=== PATIENT | female | born 1940 | race Caucasian/White ===

== ENCOUNTER → 2017-03-20 | Outpatient (CLI) | payer MEDICARE ==
[~2017-03-20] MED LIST: ACY30T TP; AZIT-1 PO; CEPH500C24 PO; CODE118S5 PO; FURO-45 PO; HYDR-385 PO; HYDR200T42 PO; LETPT PO; LIS20 PO; LISI-362 PO; LISI20TA29 PO; LOR7.5/325 PO; MELO-207 PO; NITR-1 PO; OMEG500C5 PO; OMEP-125 PO; OMEP-153 PO; ONDA8TAB98 PO; OXY10 PO; PNEU0.5D3 IM; POTA-28 PO; PRED-1 PO; PRED20TA6 PO; PROL80 PO; PROP40TA45 PO
[2017-03-20 13:48] LABS: PLATELET COUNT, AUTOMATED 376 K/uL (150-450)
--- NOTE | 2017-03-20 14:59 | RADIOLOGY IMAGING REPORT ---
FACILITY: [facility] PATIENT NAME: Latoya Auguste : 1940 MR: [id number] V: [id number] EXAM DATE: ORDERING PHYSICIAN: TASNEEM LOWRY TECHNOLOGIST: Location: [facility] Patient: Latoya Auguste : 1940 Visit/Account:[id number] Date of Sevice: 03/20/2017 Exam type: CHEST PA AND LAT History: Cough Comparison: October 21, 2008. Findings: The lungs are free of acute effusions, infiltrates or edema. Cardiac silhouette is normal in size. The trachea is in midline. There are mild spondylotic changes of the thoracic spine. Surgical clips are present in the right upper quadrant of abdomen IMPRESSION: 1. No acute cardiac pulmonary process is seen Report Dictated By: Ella Hebert MD at 03/20/2017 2:53 PM Report E-Signed By: Ella Hebert MD at 03/20/2017 2:54 PM WSN:[id number]
--- NOTE | 2017-03-20 15:50 | EKG ---
FACILITY: [facility] PATIENT NAME: RAJEEV CHU : [id number] MR: [id number] V: [id number] EXAM DATE: ORDERING PHYSICIAN: TASNEEM LOWRY TECHNOLOGIST: ISSA NARANJO Test Reason : IRREGULAR HR Blood Pressure : / mmHG Vent. Rate : 072 BPM Atrial Rate : 072 BPM P-R Int : 188 ms QRS Dur : 084 ms QT Int : 418 ms P-R-T Axes : 062 -31 037 degrees QTc Int : 457 ms Sinus rhythm with marked sinus arrhythmia Left axis deviation Septal infarct , age undetermined Abnormal ECG No previous ECGs available Confirmed by TASNEEM LOWRY ([id number]) on 03/20/2017 5:03:01 PM Referred By: Confirmed By:TASNEEM LOWRY
== END ==
LOC: LAB 13:05
PROVIDERS: ATTEND Emergency Medicine
DX: E11.9 Type 2 diabetes mellitus without complications (principal); M47.9 Spondylosis, unspecified; R94.31 Abnormal electrocardiogram [ECG] [EKG]
CPT/HCPCS: 36415; 71046; 82040; 82247; 82310; 82374; 82435; 82565; 82947; 83036; 83935; 84075; 84132; 84155; 84295; 84300; 84443; 84450; 84460; 84520; 85025

== ENCOUNTER → 2017-03-27 | Outpatient (CLI) | payer MEDICARE ==
[~2017-03-27] MED LIST changes: +GABA-549 PO
== END ==
LOC: LAB 15:56
PROVIDERS: ATTEND Emergency Medicine
DX: E87.1 Hypo-osmolality and hyponatremia (principal); G62.9 Polyneuropathy, unspecified
CPT/HCPCS: 36415; 82310; 82374; 82435; 82565; 82607; 82947; 84132; 84295; 84520

== ENCOUNTER → 2017-03-28 | Outpatient (CLI) | payer MEDICARE ==
[2017-03-28 15:24] LABS: PLATELET COUNT, AUTOMATED 449 K/uL (150-450)
== END ==
LOC: LAB 14:54
PROVIDERS: ATTEND Emergency Medicine
DX: D64.9 Anemia, unspecified (principal); E87.1 Hypo-osmolality and hyponatremia
CPT/HCPCS: 36415; 82310; 82374; 82435; 82565; 82947; 84132; 84295; 84520; 85025

== ENCOUNTER → 2017-04-12 | Outpatient (CLI) | payer MEDICARE | LOC: LAB 14:40 | PROVIDERS: ATTEND Emergency Medicine | DX: N18.3 Chronic kidney disease, stage 3 (moderate) (principal) | CPT/HCPCS: 36415; 82310; 82374; 82435; 82565; 82947; 84132; 84295; 84520 ==

== ENCOUNTER → 2017-04-20 | Outpatient (CLI) | payer MEDICARE | LOC: LAB 14:53 | PROVIDERS: ATTEND Emergency Medicine | DX: Z12.11 Encounter for screening for malignant neoplasm of colon (principal) | CPT/HCPCS: 82274 ==

== ENCOUNTER → 2017-04-23 | Outpatient (CLI) | payer MEDICARE ==
[~2017-04-23] MED LIST changes: +SULF-198 PO
--- NOTE | 2017-04-24 10:30 | RADIOLOGY IMAGING REPORT ---
FACILITY: [facility] PATIENT NAME: RAJEEV CHU : [id number] MR: [id number] V: [id number] EXAM DATE: ORDERING PHYSICIAN: TASNEEM LOWRY TECHNOLOGIST: Ely [place] PROCEDURE:BILATERAL DIGITAL SCREENING MAMMOGRAM WITH CAD ASSISTED INTERPRETATION AND 3D BREAST TOMOSYNTHESIS. COMPARISON:Prior mammograms dated 04/17/16/, 04/14/15, 04/13/14, 02/18/13, 02/05/12 and 01/23/11. INDICATIONS:SCREENING FINDINGS: A small amount of fibroglandular tissue is seen throughout the breasts. The parenchymal pattern has remained stable when allowing for difference in mammographic technique and patient positioning. There is no evidence of malignant appearing mass, malignant appearing calcification or other secondary sign of malignancy in either breast. The area of postsurgical scarring and architectural distortion in the upper outer quadrant of the left breast has remained stable. DIAGNOSTIC CATEGORY 2--BENIGN FINDING. RECOMMENDATIONS: ROUTINE MAMMOGRAM AND CLINICAL EVALUATION. IMPRESSION: Bi-RADS 2: No significant abnormality is seen. Images were reviewed with R2CAD and 3D breast tomosynthesis. Dictated by: Ella Hebert M.D. on 04/23/2017 at 17:06 Transcribed by: MINI on 04/23/2017 at 22:31 Approved by: Ella Hebert M.D. on 04/24/2017 at 10:29 [facility]
== END ==
LOC: MAMO 01:38
PROVIDERS: ATTEND Emergency Medicine
DX: Z12.31 Encounter for screening mammogram for malignant neoplasm of breast (principal)
CPT/HCPCS: 77063; 77067

== ENCOUNTER 2017-05-08 02:01 | Inpatient (IN) | payer MEDICARE ==
[~2017-05-08] VITALS: Ht 165.1 cm; Wt 70.3 kg
--- NOTE | 2017-05-08 02:04 | ER Report ---
History and Physical Time Seen By MD: 02:03 HPI/ROS CHIEF COMPLAINT: Confused, not feeling well HISTORY OF PRESENT ILLNESS: 77-year-old female presents ambulatory to the ER for evaluation. EMS was called to her house that she was feeling out of sorts and having trouble thinking. EMS reports her stroke scale was unremarkable. Her vital signs were stable. Patient declined transport by EMS and came on her own and private auto. Patient's recent history significant for shingles diagnosed in late 04/12/17. She was too late to be started on antiviral medication. On subsequent visits. She was thought to have secondary bacterial infection, was placed on sulfamethoxazole. She's also been taking hydrocodone twice daily for pain relief. Patient appears to recently been started on omeprazole 20 mg by mouth twice a day. Patient states she tonight noticed that she is having trouble operating the remote for her television. She states she just doesn't feel right. She is unable quantitated it specifically. REVIEW OF SYSTEMS: Respiratory: No cough, no dyspnea. Cardiovascular: No chest pain, no palpitations. Gastrointestinal: No vomiting, no abdominal pain. Musculoskeletal: No back pain. Allergies: Coded Allergies: Penicillins (Verified Allergy, Mild, 02/19/08) Home Meds Active Scripts Hydrocodone Bit/Acetaminophen (HYDROCODON-ACETAMINOPHEN 5-325) 1 Each Tablet, 1 EACH PO BID, #60 TAB Prov:TASNEEM OLMSTEAD MD 05/03/17 Propranolol Hcl (PROPRANOLOL HCL) 40 Mg Tablet, 1 TAB PO BID, #180 TAB Prov:TASNEEM OLMSTEAD MD 04/24/17 Omeprazole (OMEPRAZOLE) 20 Mg Capsule., 1 CAP PO DAILY, #90 CAP TAKE ONE CAPSULE BY MOUTH TWICE A DAY Prov:TASNEEM OLMSTEAD MD 04/24/17 Lisinopril (LISINOPRIL) 10 Mg Tablet, 10 MG PO QDAY, #90 TAB 3 Refills Prov:TASNEEM OLMSTEAD MD 04/24/17 Reported Medications [place]-3 Fatty Acids (FISH OIL) 500 Mg Capsule.dr, 1000 MG PO 04/15/14 Discontinued Scripts Sulfamethoxazole/Trimet 800-160 Mg Tab (BACTRIM DS TABLET) 1 Each Tablet, 1 TAB PO Q12H for 10 Days, #20 TAB Prov:TASNEEM OLMSTEAD MD 04/24/17 Past Medical/Surgical History Past Medical History Neurologic: Reports hx of: sciatica (in right thigh. Had MRI years ago. 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 ) Cardiovascular: Reports hx of: cardiac arrhythmias (hx palpitations and on propranolol for years. ) hypertension (Tx for years. ) Gastrointestinal: Reports hx of: GERD (Not had EGD but on omeprazole for years. TUMS before that. ) Genitourinary: Reports hx of: overactive bladder (urgency and some incontinence. declines med for now.) Musculoskeletal: Reports hx of: osteoarthritis (in both shoulders and knees. takes ibuprofen. had steroid to L shoulder.) Psychiatric: Reports hx of: depression (on antidepressants which she "did not tolerate". Has insomnia. ) Endocrine: Reports hx of: other endocrine history (elevated glucose with A1c of 6.3 in 2012. 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 left breast lumpectomy followed by RT. see Dr. Emile Summers. ) Infectious disease: Reports hx of: other infectious disease (Shingles 04/05) Events: REPORTS HX OF: Other events (abstracted 03/01. Annual in mid 03/01. ) Past Surgical History Gastrointestinal: Reports hx of: cholecystectomy (1994) Gynecologic: Reports hx of: hysterectomy (2000. ovaries also removed. ) Breast: Reports hx of: lumpectomy (2005 in left breast per Dr[address] Wright. 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 ) Reviewed Nurses Notes: Yes Old Medical Records Reviewed: Yes Smoking Status: Never Smoker Constitutional Vital Sign - Last 24 Hours 05/08/17 05/08/17 05/08/17 05/08/17 02:14 02:16 02:19 02:30 Temp 97.5 Pulse 71 70 Resp 22 18 B/P (MAP) 158/113 (128) 158/84 (108) 158/84 138/104 (115) Pulse Ox 100 O2 Delivery Room Air 05/08/17 05/08/17 05/08/17 05/08/17 02:31 02:46 03:00 03:05 Pulse 82 78 78 Resp 13 18 16 B/P (MAP) 126/80 (95) Pulse Ox 99 99 100 05/08/17 05/08/17 05/08/17 05/08/17 03:10 03:15 03:20 03:25 Pulse ? 05/08/17 05/08/17 05/08/17 05/08/17 03:30 03:35 03:40 03:45 Pulse 79 71 69 74 Resp 12 19 15 17 B/P (MAP) 137/95 (109) Pulse Ox 97 98 98 99 05/08/17 05/08/17 05/08/17 05/08/17 03:50 04:05 04:10 04:15 Pulse 75 76 70 72 Resp 13 17 19 16 Pulse Ox 99 100 99 99 05/08/17 05/08/17 05/08/17 05/08/17 04:20 04:25 04:30 04:35 Pulse 73 75 73 73 Resp 21 22 22 19 B/P (MAP) 129/79 (96) Pulse Ox 99 99 98 100 05/08/17 05/08/17 05/08/17 05/08/17 04:40 04:45 04:55 05:00 Pulse 76 86 73 109 Resp 19 Pulse Ox 100 98 87 05/08/17 05/08/17 05/08/17 05:05 05:10 05:15 Pulse 80 85 85 Pulse Ox 97 100 100 Physical Exam General Appearance: The patient is alert, has no immediate need for airway protection and no current signs of toxicity. Alert and oriented 3, no acute distress HEENT: Pupils equal and round no injection. TMs normal, oropharynx without redness or exudate, mucous membranes are moist Respiratory: Chest is non tender, lungs are clear to auscultation. Cardiac: regular rate and rhythm Gastrointestinal: Abdomen is soft and non tender, no masses, bowel sounds normal. Musculoskeletal: Neck: Neck is supple and non tender. Extremities have full range of motion and are non tender. Skin: No rashes or lesions. DIFFERENTIAL DIAGNOSIS: After history and physical exam differential diagnosis was considered for altered mental status including but not limited to hypoglycemia, infectious process, electrolyte abnormality, head injury and intoxicants. Medical Decision Making Data Points Result Diagram: 05/08/17 0219 05/08/17 1702 Laboratory Hematology Test 05/08/17 02:19 Red Blood Count 4.57 M/uL (4.17-5.56) Mean Corpuscular Volume 86.7 fL (80.0-96.0) Mean Corpuscular Hemoglobin 30.2 pg (26.0-33.0) Mean Corpuscular Hemoglobin Concent 34.9 g/dL (32.0-36.0) Red Cell Distribution Width 13.8 % (11.5-14.5) Mean Platelet Volume 7.1 fL (7.2-11.1) Neutrophils (%) (Auto) 55.7 % (39.4-72.5) Lymphocytes (%) (Auto) 26.7 % (17.6-49.6) Monocytes (%) (Auto) 12.0 % (4.1-12.4) Eosinophils (%) (Auto) 4.5 % (0.4-6.7) Basophils (%) (Auto) 1.1 % (0.3-1.4) Nucleated RBC Relative Count (auto) 0.0 /100WBC Neutrophils # (Auto) 3.7 K/uL (2.0-7.4) Lymphocytes # (Auto) 1.8 K/uL (1.3-3.6) Monocytes # (Auto) 0.8 K/uL (0.3-1.0) Eosinophils # (Auto) 0.3 K/uL (0.0-0.5) Basophils # (Auto) 0.1 K/uL (0.0-0.1) Nucleated RBC Absolute Count (auto) 0.00 K/uL Urine Color Yellow Urine Clarity Slightly-cloudy Urine pH 5.0 pH (4.8-9.5) Urine Specific [place] 1.020 Urine Protein Negative mg/dL (NEGATIVE) Urine Glucose (UA) Negative mg/dL (NEGATIVE) Urine Ketones Trace mg/dL (NEGATIVE) Urine Blood Negative (NEGATIVE) Urine Nitrite Negative (NEGATIVE) Urine Bilirubin Negative (NEGATIVE) Urine Urobilinogen Negative mg/dL (0.2-1.9) Urine Leukocyte Esterase Small (NEGATIVE) Urine RBC None /HPF (0-2/HPF) Urine WBC 4 /HPF (0-5/HPF) Urine Squamous Epithelial Cells Many /LPF (</=FEW) Urine Transitional Epithelial Cells Moderate /LPF (NONE-FEW) Urine Bacteria Negative /HPF (NONE-FEW) Urine Hyaline Casts Moderate /LPF (NONE-FEW) Urine Mucus None /HPF (NONE-FEW) Total Bilirubin 0.5 mg/dl (0.2-1.3) Aspartate Amino Transf (AST/SGOT) 23 U/L (0-35) Alanine Aminotransferase (ALT/SGPT) 32 U/L (0-56) Alkaline Phosphatase 90 U/L (0-126) Troponin I < 0.012 ng/ml Total Protein 7.7 gm/dl (6.3-8.2) Albumin 4.2 g/dl (3.5-5.0) Thyroid Stimulating Hormone (TSH) 3.22 uIU/ml (0.46-4.68) Serum Alcohol < 10 mg/dl Chemistry Test 05/08/17 02:19 White Blood Count 6.7 k/uL (4.5-11.0) Red Blood Count 4.57 M/uL (4.17-5.56) Hemoglobin 13.8 g/dL (12.0-16.0) Hematocrit 39.6 % (34.0-47.0) Mean Corpuscular Volume 86.7 fL (80.0-96.0) Mean Corpuscular Hemoglobin 30.2 pg (26.0-33.0) Mean Corpuscular Hemoglobin Concent 34.9 g/dL (32.0-36.0) Red Cell Distribution Width 13.8 % (11.5-14.5) Platelet Count 396 K/uL (150-450) Mean Platelet Volume 7.1 fL (7.2-11.1) Neutrophils (%) (Auto) 55.7 % (39.4-72.5) Lymphocytes (%) (Auto) 26.7 % (17.6-49.6) Monocytes (%) (Auto) 12.0 % (4.1-12.4) Eosinophils (%) (Auto) 4.5 % (0.4-6.7) Basophils (%) (Auto) 1.1 % (0.3-1.4) Nucleated RBC Relative Count (auto) 0.0 /100WBC Neutrophils # (Auto) 3.7 K/uL (2.0-7.4) Lymphocytes # (Auto) 1.8 K/uL (1.3-3.6) Monocytes # (Auto) 0.8 K/uL (0.3-1.0) Eosinophils # (Auto) 0.3 K/uL (0.0-0.5) Basophils # (Auto) 0.1 K/uL (0.0-0.1) Nucleated RBC Absolute Count (auto) 0.00 K/uL Urine Color Yellow Urine Clarity Slightly-cloudy Urine pH 5.0 pH (4.8-9.5) Urine Specific [place] 1.020 Urine Protein Negative mg/dL (NEGATIVE) Urine Glucose (UA) Negative mg/dL (NEGATIVE) Urine Ketones Trace mg/dL (NEGATIVE) Urine Blood Negative (NEGATIVE) Urine Nitrite Negative (NEGATIVE) Urine Bilirubin Negative (NEGATIVE) Urine Urobilinogen Negative mg/dL (0.2-1.9) Urine Leukocyte Esterase Small (NEGATIVE) Urine RBC None /HPF (0-2/HPF) Urine WBC 4 /HPF (0-5/HPF) Urine Squamous Epithelial Cells Many /LPF (</=FEW) Urine Transitional Epithelial Cells Moderate /LPF (NONE-FEW) Urine Bacteria Negative /HPF (NONE-FEW) Urine Hyaline Casts Moderate /LPF (NONE-FEW) Urine Mucus None /HPF (NONE-FEW) Total Bilirubin 0.5 mg/dl (0.2-1.3) Aspartate Amino Transf (AST/SGOT) 23 U/L (0-35) Alanine Aminotransferase (ALT/SGPT) 32 U/L (0-56) Alkaline Phosphatase 90 U/L (0-126) Troponin I < 0.012 ng/ml Total Protein 7.7 gm/dl (6.3-8.2) Albumin 4.2 g/dl (3.5-5.0) Thyroid Stimulating Hormone (TSH) 3.22 uIU/ml (0.46-4.68) Serum Alcohol < 10 mg/dl Toxicology Test 05/08/17 02:19 Serum Alcohol < 10 mg/dl Urinalysis Test 05/08/17 02:19 Urine Color Yellow Urine Clarity Slightly-cloudy Urine pH 5.0 pH (4.8-9.5) Urine Specific [place] 1.020 Urine Protein Negative mg/dL (NEGATIVE) Urine Glucose (UA) Negative mg/dL (NEGATIVE) Urine Ketones Trace mg/dL (NEGATIVE) Urine Blood Negative (NEGATIVE) Urine Nitrite Negative (NEGATIVE) Urine Bilirubin Negative (NEGATIVE) Urine Urobilinogen Negative mg/dL (0.2-1.9) Urine Leukocyte Esterase Small (NEGATIVE) Urine RBC None /HPF (0-2/HPF) Urine WBC 4 /HPF (0-5/HPF) Urine Squamous Epithelial Cells Many /LPF (</=FEW) Urine Transitional Epithelial Cells Moderate /LPF (NONE-FEW) Urine Bacteria Negative /HPF (NONE-FEW) Urine Hyaline Casts Moderate /LPF (NONE-FEW) Urine Mucus None /HPF (NONE-FEW) EKG/Imaging EKG Interpretation 12 lead EK 243 Rhythm: normal sinus rhythm [place]: Left axis deviation QRS: Old inferior Q waves, old anterior Q waves ST segments: normal, comparison to previous EKG dated, no significant change in comparison to previous EKG dated 03/20/17 Imaging X-ray: Single view chest x-ray was obtained. I viewed the images myself on the PACS system. My interpretation of the images is: No infiltrate, no usually in, normal mediastinum., Comparison to previous chest x-ray dated 03/20/17, no significant change. The radiologist interpretation had no clinically significant variation from this interpretation. Results: CT scan of the head was obtained. The results of the study are no acute findings. The study was read by the radiologist. I viewed the images myself on the PACS system. ED Course/Re-evaluation Clinical Indication for ER IV: Hydration, IV Access ED Course Patient was admitted to an examination room. H&P was done. The differential diagnoses was considered. On clinical examination. Patient has a nonfocal neurologic examination. Diagnostic evaluation is undertaken. Diagnostic laboratory studies show sodium of 1:15. Review of old records shows a previous sodium of 122 and diagnosis of SIADH by Dr. Olmstead. Patient was treated with normal saline at 125 mL per hour. Patient diagnostic CT was unremarkable except for some pansinusitis. 05/08/2017 4:28:10 am case discussed with Jonah Barnes hospitalist on-call, who accepts the patient for admission for treatment of her low sodium and SIADH Decision to Disposition Date: May 08, 2017 Decision to Disposition Time: 02:47 Depart Departure Latest Vital Signs Vital Signs Date Time Temp Pulse Resp B/P (MAP) Pulse Ox O2 Delivery O2 Flow Rate FiO2 05/08/17 05:15 85 100 05/08/17 04:45 19 05/08/17 04:30 129/79 (96) 05/08/17 02:19 97.5 Room Air Impression: Primary Impression: Hyponatremia Additional Impressions: Altered mental status, unspecified Hypertension GERD (gastroesophageal reflux disease) Shingles outbreak History of SIADH Condition: Improved Disposition: Admitted from ER Referrals: TASNEEM OLMSTEAD MD (PCP) Problem Qualifiers Additional Impressions: Altered mental status, unspecified Altered mental status type: unspecified Qualified Codes: R41.82 - Altered mental status, unspecified Hypertension Hypertension type: essential hypertension Qualified Codes: I10 - Essential ( primary) hypertension GERD (gastroesophageal reflux disease) Esophagitis presence: esophagitis presence not specified Qualified Codes: K21.9 - Gastro-esophageal reflux disease without esophagitis Shingles outbreak Herpes zoster complications: with nervous system involvement Herpes zoster neurologic complication detail: postherpetic polyneuropathy Qualified Codes: B02.23 - Postherpetic polyneuropathy BHAVANA SALAZAR DO May 08, 2017 02:04
[2017-05-08 02:28] LABS: PLATELET COUNT, AUTOMATED 396 K/uL (150-450)
--- NOTE | 2017-05-08 02:47 | EKG ---
FACILITY: [facility] PATIENT NAME: RAJEEV CHU : [id number] MR: [id number] V: [id number] EXAM DATE: ORDERING PHYSICIAN: BHAVANA SALAZAR TECHNOLOGIST: AWA Test Reason : CONFUSION Blood Pressure : / mmHG Vent. Rate : 078 BPM Atrial Rate : 078 BPM P-R Int : 196 ms QRS Dur : 074 ms QT Int : 384 ms P-R-T Axes : 078 -49 035 degrees QTc Int : 437 ms Sinus rhythm Left axis deviation Inferior infarct , age undetermined Anteroseptal infarct (cited on or before 20-MAR-2017) Abnormal ECG Artifact in multiple leads - repeat if needed Confirmed by ADDIE THOMPSON ([id number]) on 05/08/2017 4:25:17 AM Referred By: Confirmed By:ADDIE THOMPSON
[2017-05-08] MEDS ORDERED: NS(*) 0.9% 1000 ML BAG 1,000 ML IV ONE (02:50)
--- NOTE | 2017-05-08 02:52 | RADIOLOGY IMAGING REPORT ---
FACILITY: [facility] PATIENT NAME: Latoya Auguste : 1940 MR: [id number] V: [id number] EXAM DATE: ORDERING PHYSICIAN: BHAVANA SALAZAR TECHNOLOGIST: Location: [facility] - [place], [place] Patient: Latoya Auguste : 1940 Visit/Account:[id number] Date of Sevice: 05/08/2017 PORTABLE CHEST: Indication: Altered mental status. Technique: A single frontal film was obtained. Comparison: 03/20/2017 Skeletal and soft tissue structures: There are chronic degenerative changes in shoulders. No acute sk eletal deformity is identified. Heart and mediastinum: Within normal limits. Lung wiseman: Well-expanded and clear. Pleural spaces: Unremarkable. Impression: No acute process or significant change. Report Dictated By: Maciej Woods MD at 05/08/2017 2:45 AM Report E-Signed By: Maciej Woods MD at 05/08/2017 2:47 AM WSN:[id number]
--- NOTE | 2017-05-08 03:38 | RADIOLOGY IMAGING REPORT ---
FACILITY: [facility] [place] PATIENT NAME: Latoya Auguste : 1940 MR: [id number] V: [id number] EXAM DATE: ORDERING PHYSICIAN: BHAVANA SALAZAR TECHNOLOGIST: Location: [facility] Patient: Latoya Auguste : 1940 Visit/Account:[id number] Date of Sevice: 05/08/[address]: Indication: Altered mental status. Technique: Contiguous axial sections were obtained from the base to the vertex without contrast enhan cement. One of the following dose optimization techniques was utilized in the performance of this exam: Autom ated exposure control; adjustment of the mA and/or kV according to the patient's size; or use of an i terative reconstruction technique. Specific details can be referenced in the facility's radiology CT exam operational policy. Comparison: None. Findings: There is no evidence of intra-axial or extra-axial hemorrhage. No focal areas of decreased or increased attenuation are identified. There is no evidence of mass, edema, or shift of the midline structures. The size, shape, and configuration of the ventricular system are normal. The skeletal st ructures are intact and unremarkable. There is diffuse opacification of the maxillary sinuses. Modera te mucosal thickening is present in the ethmoid and frontal sinuses. Impression: Unremarkable unenhanced head CT. Pansinusitis. Report Dictated By: Maciej Woods MD at 05/08/2017 3:30 AM Report E-Signed By: Maciej Woods MD at 05/08/2017 3:34 AM WSN:[id number]
[2017-05-08] MEDS ORDERED: IBUPROFEN 600 MG TAB PO ONE (04:25)
[2017-05-08 05:36] VITALS: BP 138/72
[2017-05-08] MEDS ORDERED: NS(*) 0.9% 1000 ML BAG 1,000 ML IV PRN (05:48)
[2017-05-08] MEDS ORDERED: INFLUENZA VIRUS VAC 0.5 ML SYR IM ONLY ONE (05:50)
[2017-05-08] MEDS ORDERED: ACETAMINOPHEN 325 MG TAB PO PRN (05:50)
--- NOTE | 2017-05-08 06:07 | History & Physical ---
History of Present Illness Chief Complaint "I don't feel right" History of Present Illness 77yo female with PMHx significant for HTN, breast cancer, recurrent hyponatremia. She reports increasing sensation of imbalance, generalized weakness, and "just not feeling right". She has difficult time describing her symptoms, but states she feels as if she "was missing something". She had trouble doing many of her usual activities around the house. She denies any DOCKERY, visual changes, focal weakness, CP, SOB, fever, N/V/D, or urinary symptoms. She has been dealing with a case of shingles in right ~L2 dermatome for the past month. She was evaluated in [facility] ER and found to have profound hyponatremia with sodium of 115. She was recommended for admission. History Problems: (1) Breast cancer Status: Chronic (2) S/P lumpectomy, left breast (3) History of hysterectomy (4) History of knee replacement (5) Arthritis Onset Date: 11/24/2014 Status: Chronic (6) Hypertension, benign Onset Date: 03/03/2014 Status: Chronic (7) Hyponatremia Status: Acute (8) Hypertension Status: Acute (9) GERD (gastroesophageal reflux disease) Status: Acute Home Meds Active Scripts Hydrocodone Bit/Acetaminophen (HYDROCODON-ACETAMINOPHEN 5-325) 1 Each Tablet, 1 EACH PO BID, #60 TAB Prov:TASNEEM LOWRY MD 05/03/17 Propranolol Hcl (PROPRANOLOL HCL) 40 Mg Tablet, 1 TAB PO BID, #180 TAB Prov:TASNEEM LOWRY MD 04/24/17 Omeprazole (OMEPRAZOLE) 20 Mg Capsule., 1 CAP PO DAILY, #90 CAP TAKE ONE CAPSULE BY MOUTH TWICE A DAY Prov:TASNEEM LOWRY MD 04/24/17 Lisinopril (LISINOPRIL) 10 Mg Tablet, 10 MG PO QDAY, #90 TAB 3 Refills Prov:TASNEEM LOWRY MD 04/24/17 Reported Medications [place]-3 Fatty Acids (FISH OIL) 500 Mg Capsule.dr, 1000 MG PO 04/15/14 Discontinued Scripts Sulfamethoxazole/Trimet 800-160 Mg Tab (BACTRIM DS TABLET) 1 Each Tablet, 1 TAB PO Q12H for 10 Days, #20 TAB Prov:TASNEEM LOWRY MD 04/24/17 Allergies: Coded Allergies: Penicillins (Verified Allergy, Mild, 12/3/08) Patient History: Renal failure FATHER Other Social/Family Hx She currently lives alone. Smoking Status: Never Smoker Hx Alcohol Use: No Social Drug Use: Never Review of Systems Constitutional: No Fever, No Chills Neurological: Confusion, Weakness, Dizziness Eyes: No Vision Change, No Loss of Vision ENT: Sinus Congestion, No Hearing Loss Cardiovascular: No Chest Pain, No Palpitations Respiratory: No Shortness of Breath, No Cough, No Wheezing Gastrointestinal: No Nausea, No Vomiting, No Diarrhea, No Hematemesis, No Hematochezia, No Melena, No Abdominal Pain Genitourinary: No Dysuria, No Hematuria Musculoskeletal: Pain (shingles) Exam Vital Signs Vital Signs Date Time Temp Pulse Resp B/P (MAP) Pulse Ox O2 Delivery O2 Flow Rate FiO2 05/08/17 05:36 97.7 77 16 138/72 (94) 96 Room Air General Appearance: Alert, Awake Neuro: No Gross deficits (motor exam grossly normal) Eyes: PERRLA ENT: Oropharynx Clear Neck: No Masses Cardiovascular: Regular Rate and Rhythm Respiratory: Clear to Auscultation Chest: No Tenderness GI: Abd Soft and Non-Tender : No CVA Tenderness Lymph: No Adenopathy Extremities: Warm, Perfused, Edema (trace both LE) Integumentary: Other (scabbed lesions of herpes zoster in right ~L2 dermatome/ some cracking of bunny skin is noted) Psych: Alert & Oriented X3 Medical Decision Making Data Points Result Diagram: 05/08/1721805/08/17218 Item Value Date Time Albumin 4.2 g/dl 05/08/17218 Total Protein 7.7 gm/dl 05/08/17 021 Troponin I < 0.012 ng/ml 05/08/17218 Alkaline Phosphatase 90 U/L 05/08/17218 Aspartate Amino Transf (AST/SGOT) 23 U/L 05/08/17 021 Alanine Aminotransferase (ALT/SGPT) 32 U/L 05/08/17 021 Calcium Level 9.6 mg/dl 05/08/17218 Total Bilirubin 0.5 mg/dl 05/08/17 021 Urine Mucus None /HPF 05/08/17218 Urine Hyaline Casts Moderate /LPF H 2/20/18 0219 Urine Bacteria Negative /HPF 05/08/17 0219 Urine Transitional Epithelial Cells Moderate /LPF H 05/08/17 0219 Urine Squamous Epithelial Cells Many /LPF H 05/08/17 0219 Urine WBC 4 /HPF 05/08/179 Urine RBC None /HPF 05/08/17 0219 Urine Leukocyte Esterase Small H 05/08/17218 Urine Urobilinogen Negative mg/dL 05/08/17218 Urine Bilirubin Negative 05/08/17 0219 Urine Nitrite Negative 05/08/17 021 Urine Blood Negative 05/08/179 Urine Ketones Trace mg/dL 05/08/17218 Urine Glucose (UA) Negative mg/dL 05/08/17218 Urine Protein Negative mg/dL 05/08/17218 Urine Specific [place] 1.020 05/08/17218 Urine pH 5.0 pH 05/08/17218 Urine Clarity Slightly-cloudy 05/08/17218 Urine Color Yellow 05/08/17218 Serum Alcohol < 10 mg/dl 05/08/17218 EKG / Imaging EKG Interpretation PATIENT NAME: LATOYA AUGUSTE : [id number] MR: [id number] V: [id number] EXAM DATE: ORDERING PHYSICIAN: BHAVANA SALAZAR TECHNOLOGIST: Test Reason : CONFUSION Blood Pressure : / mmHG Vent. Rate : 078 BPM Atrial Rate : 078 BPM P-R Int : 196 ms QRS Dur : 074 ms QT Int : 384 ms P-R-T Axes : 078 -49 035 degrees QTc Int : 437 ms Sinus rhythm Left axis deviation Inferior infarct , age undetermined Anteroseptal infarct (cited on or before 20-MAR-2017) Abnormal ECG Artifact in multiple leads - repeat if needed Confirmed by ADDIE THOMPSON ([id number]) on 05/08/2017 4:25:17 AM Referred By: Confirmed By:ADDIE THOMPSON Imaging PATIENT NAME: Latoya Auguste : 1940 MR: [id number] V: [id number] EXAM DATE: ORDERING PHYSICIAN: BHAVANA SALAZAR TECHNOLOGIST: Location: [facility] Patient: Latoya Auguste : 1940 Visit/Account:[id number] Date of Sevice: 05/08/[address]: Indication: Altered mental status. Technique: Contiguous axial sections were obtained from the base to the vertex without contrast enhancement. One of the following dose optimization techniques was utilized in the performance of this exam: Automated exposure control; adjustment of the mA and/ or kV according to the patient's size; or use of an iterative reconstruction technique. Specific details can be referenced in the facility's radiology CT exam operational policy. Comparison: None. Findings: There is no evidence of intra-axial or extra-axial hemorrhage. No focal areas of decreased or increased attenuation are identified. There is no evidence of mass, edema, or shift of the midline structures. The size, shape, and configuration of the ventricular system are normal. The skeletal structures are intact and unremarkable. There is diffuse opacification of the maxillary sinuses. Moderate mucosal thickening is present in the ethmoid and frontal sinuses. Impression: Unremarkable unenhanced head CT. Pansinusitis. Report Dictated By: Maciej Woods MD at 05/08/2017 3:30 AM Report E-Signed By: Maciej Woods MD at 05/08/2017 3:34 AM [id number] PATIENT NAME: Latoya Auguste : 1940 MR: [id number] V: [id number] EXAM DATE: ORDERING PHYSICIAN: BHAVANA SALAZAR TECHNOLOGIST: Location: [facility] Patient: Latoya Auguste : 1940 Visit/Account:[id number] Date of : 05/08/2017 PORTABLE CHEST: Indication: Altered mental status. Technique: A single frontal film was obtained. Comparison: 03/20/2017 Skeletal and soft tissue structures: There are chronic degenerative changes in shoulders. No acute skeletal deformity is identified. Heart and mediastinum: Within normal limits. Lung wiseman: Well-expanded and clear. Pleural spaces: Unremarkable. Impression: No acute process or significant change. Report Dictated By: Maciej Woods MD at 05/08/2017 2:45 AM Report E-Signed By: Maciej Woods MD at 05/08/2017 2:47 AM WSN:[id number] Assessment and Plan Problems: (1) Hyponatremia Status: Acute Assessment & Plan: Acute, but appears to be recurrent. Will check urine studies. Start on gentle IV NS infusion. Watch labs every 6-8 hours. Unsure of chronicity, so will need to make sure sodium does not rise too quickly (or drop any further). (2) Hypertension Status: Acute Assessment & Plan: Will hold her usual medications for now. Watch BP and resume as needed. (3) Breast cancer Status: Chronic Assessment & Plan: She has been doing her follow up mammograms and no abnormalities were seen. (4) Herpes zoster Status: Chronic Assessment & Plan: She has been dealing with this for the past month. She does not appear to have any current lesions. All of this appears to be old, but still healing. Venous Thromboembolism Antithrombotics Is Pt On Any Antithrombotics?: Yes Exam Sepsis Risk: No Definite Risk Problem Qualifiers (1) Hypertension: Hypertension type: essential hypertension Qualified Codes: I10 - Essential ( primary) hypertension ADDIE THOMPSON MD May 08, 2017 06:07
[2017-05-08 09:19] VITALS: Ht 165.1 cm; Wt 70.3 kg
[2017-05-08] MEDS: PROPRANOLOL HCL 20 MG TAB PO SCH ×2 (09:54→21:00)
[2017-05-08] MEDS: ENOXAPARIN 40 MG/0.4ML SYR SC SCH (09:55)
[2017-05-08 10:52] VITALS: BP 144/86
[2017-05-08] MEDS: IBUPROFEN 600 MG TAB PO PRN ×2 (10:57→20:54)
[2017-05-08 16:42] VITALS: BP 154/89
[2017-05-08] MEDS ORDERED: SODIUM CHLORIDE 1 GR TAB PO ONE (17:55)
[2017-05-08 19:18] VITALS: BP 115/70
[2017-05-08 20:51] VITALS: BP 102/64
[2017-05-09 03:17] VITALS: BP 121/62
[2017-05-09 06:10] LABS: PLATELET COUNT, AUTOMATED 315 K/uL (150-450)
[2017-05-09 07:43] VITALS: BP 125/62
[2017-05-09] MEDS: ENOXAPARIN 40 MG/0.4ML SYR SC SCH (08:34)
[2017-05-09] MEDS: PROPRANOLOL HCL 20 MG TAB PO SCH (08:34)
[2017-05-09] MEDS ORDERED: [UNRECOGNIZED DRUG - CODE] MC (10:24)
--- NOTE | 2017-05-09 10:24 | Hospitalist Depart ---
Discharge Summary Reason for Hosp/Final Diag: (1) Hyponatremia Status: Acute Hospital Course & Plan: She does have chronic hyponatremia, but her levels were slightly lower at admission. We placed her on IV fluids and treated her with salt tablets. Her sodium level is now near her baseline. (2) Hypertension Status: Acute Hospital Course & Plan: She was on chronic treatment with lisinopril and propranolol. The lisinopril has been discontinued secondary to low blood pressures. (3) Herpes zoster Status: Chronic Hospital Course & Plan: She did develop shingles approximately one month ago. Her lesions are all crusted over and she does not have any lingering effects. Departure Latest Vital Signs Vital Signs 05/09/17 07:43 Temp 98.1 Pulse 72 Resp 16 B/P (MAP) 125/62 (83) Pulse Ox 98 O2 Delivery Room Air Weight (Pounds): 155 Weight (Ounces): 0.0 Result Diagram: 05/09/1754305/09/17543 Condition: Improved Discharge: Home, Self Care Discharge Instructions Home Meds Active Scripts Sodium Chloride (SODIUM CHLORIDE) 1,000 Mg Tablet.alcides, 1000 MG MC BID, #60 TAB Prov:WILLIE GARZA DO 05/09/17 Propranolol Hcl (PROPRANOLOL HCL) 40 Mg Tablet, 1 TAB PO BID, #180 TAB Prov:TASNEEM LOWRY MD 04/24/17 Omeprazole (OMEPRAZOLE) 20 Mg Capsule.dr, 1 CAP PO DAILY, #90 CAP TAKE ONE CAPSULE BY MOUTH TWICE A DAY Prov:TASNEEM LOWRY MD 04/24/17 Reported Medications [place]-3 Fatty Acids (FISH OIL) 500 Mg Capsule.dr, 1000 MG PO 04/15/14 Discontinued Scripts Hydrocodone Bit/Acetaminophen (HYDROCODON-ACETAMINOPHEN 5-325) 1 Each Tablet, 1 EACH PO BID, #60 TAB Prov:TASNEEM LOWRY MD 05/03/17 Lisinopril (LISINOPRIL) 10 Mg Tablet, 10 MG PO QDAY, #90 TAB 3 Refills Prov:TASNEEM LOWRY MD 04/24/17 Sulfamethoxazole/Trimet 800-160 Mg Tab (BACTRIM DS TABLET) 1 Each Tablet, 1 TAB PO Q12H for 10 Days, #20 TAB Prov:TASNEEM LOWRY MD 04/24/17 Diet: Regular Activity: As Tolerated Copies to: TASNEEM LOWRY MD Venous Thromboembolism Antithrombotics Is Pt On Any Antithrombotics?: Yes Problem Qualifiers (1) Hypertension: Hypertension type: essential hypertension Qualified Codes: I10 - Essential ( primary) hypertension WILLIE GARZA DO May 09, 2017 10:24
== END 2017-05-09 10:40 | disposition home or self-care (01) | DRG 641 ==
LOC: ER 02:42 → MED 05:17
PROVIDERS: ADMIT Internal Medicine; ATTEND Internal Medicine
DX: E87.1 Hypo-osmolality and hyponatremia (principal); B02.23 Postherpetic polyneuropathy; R41.82 Altered mental status, unspecified; R53.1 Weakness; M19.011 Primary osteoarthritis, right shoulder; M19.012 Primary osteoarthritis, left shoulder; K21.9 Gastro-esophageal reflux disease without esophagitis; I10 Essential (primary) hypertension; I49.9 Cardiac arrhythmia, unspecified; N32.81 Overactive bladder; F32.9 Major depressive disorder, single episode, unspecified; R42 Dizziness and giddiness; R60.0 Localized edema; R73.03 Prediabetes; M17.0 Bilateral primary osteoarthritis of knee; Z88.0 Allergy status to penicillin; Z85.3 Personal history of malignant neoplasm of breast; Z90.49 Acquired absence of other specified parts of digestive tract; Z90.710 Acquired absence of both cervix and uterus; Z96.651 Presence of right artificial knee joint; Z98.890 Other specified postprocedural states
CPT/HCPCS: 36415; 70450; 71045; 80320; 81001; 82040; 82247; 82310; 82374; 82435; 82565; 82947; 83935; 84075; 84132; 84155; 84295; 84300; 84443; 84450; 84460; 84484; 84520; 85025; 93005; 96360; 96361; 99285; A4353; J1650; J7030

== ENCOUNTER → 2017-05-21 | Outpatient (CLI) | payer MEDICARE ==
[2017-05-08 09:19] VITALS: BMI 25.8
[~2017-05-21] MED LIST changes: +[UNRECOGNIZED DRUG - CODE] MC
== END ==
LOC: LAB 14:41
PROVIDERS: ATTEND Emergency Medicine
DX: E87.1 Hypo-osmolality and hyponatremia (principal)
CPT/HCPCS: 36415; 82310; 82374; 82435; 82565; 82947; 84132; 84295; 84520

== ENCOUNTER → 2017-05-23 | Outpatient (CLI) | payer MEDICARE ==
[2017-05-08 09:19] VITALS: BMI 25.8
--- NOTE | 2017-05-23 14:10 | RADIOLOGY IMAGING REPORT ---
FACILITY: [facility] PATIENT NAME: Latoya Auguste : 1940 MR: [id number] V: [id number] EXAM DATE: ORDERING PHYSICIAN: TASNEEM LOWRY TECHNOLOGIST: Location: [facility] Patient: Latoya Auguste : 1940 Visit/Account:[id number] Date of Sevice: 05/23/2017 BRAIN W W/O CONTRAST Hyponatremia, left hand weakness ADDITIONAL PERTINENT HISTORY: None. COMPARISON STUDIES: Head CT May 23, 2017 TECHNIQUE: Multi-planar, multi-sequence brain MRI was performed with and without IV contrast adminis tration. Contrast: 15 mL MultiHance FINDINGS: Ventricles / sulci / fissures: There is mild diffuse central and cortical atrophy not out of proport ion for patient's age Masses / hemorrhage / midline shift: Negative. White matter: There are multifocal areas of increased FLAIR and T2 signal intensity in the bilateral frontal and right parietal periventricular white matter with no evidence of restricted diffusion, ma ss effect or contrast enhancement Mendenhall-white differentiation: Normal. Extra-axial fluid collections: There is a coarse extra-axial calcification in the right frontal mag on with no contrast enhancement Intracranial vasculature and dural sinuses: Negative. Skull base / calvarium: Negative. Visualized mastoid air cells / paranasal sinuses: There is near complete opacification of both maxill jovani sinuses and extensive mucosal thickening and partial opacification in the frontal and ethmoid sin uses. Orbits: Negative. Upper neck:Negative. IMPRESSION: Mild diffuse central cortical atrophy not out of proportion for patient's age Multifocal areas of increased FLAIR and T2 signal intensity in the bilateral frontal and right pariet al White matter with no evidence of restricted diffusion, mass effect or contrast enhancement. These ch anges are likely related to chronic small vessel disease Pansinusitis Report Dictated By: Ella Hebert MD at 05/23/2017 1:58 PM Report E-Signed By: Ella Hebert MD at 05/23/2017 2:06 PM WSN:[id number]
--- NOTE | 2017-05-23 14:53 | RADIOLOGY IMAGING REPORT ---
FACILITY: [facility] PATIENT NAME: Latoya Auguste : 1940 MR: [id number] V: [id number] EXAM DATE: ORDERING PHYSICIAN: TASNEEM LOWRY TECHNOLOGIST: Location: [facility] [place] Patient: Latoya Auguste : 1940 Visit/Account:[id number] Date of Sevice: 05/23/2017 EXAMINATION: MRI Cervical spine without intravenous contrast MRI Cervical spine with intravenous contrast HISTORY: Left hand weakness. COMPARISON: None. TECHNIQUE: Multi-planar, multi-sequence cervical spine MRI was performed before and after IV contras t. CONTRAST: 15 mL of IV MultiHance FINDINGS: Alignment: Straightening and slight reversal of the normal lordosis. 5 mm of retrolisthesis of C4 ove r C5. 4 mm of retrolisthesis and C5 over C6. 1 to 2 mm of anterior listhesis of T1 over T2 and T2 ove r T3. Vertebral marrow signal: Negative. Cranio-cervical junction: Mild degenerative changes. Otherwise negative. Visualized posterior fossa: Negative. Soft tissues: Negative. Cervical cord: Spinal cord compression and T2 hyperintense spinal cord signal at C4-C5. Enhancement pattern: Negative. Disc Spaces: C1-2: No significant stenosis. C2-3: Broad-based disc osteophyte complex and left greater than right facet hypertrophy. Mild ligamen natalee flavum thickening. No significant spinal canal stenosis. Mild right and moderate left neural fora sreekanth stenosis. C3-4: Moderate to severe disc height loss with circumferential disc osteophyte complex and left great er than right facet hypertrophy. No significant spinal canal stenosis. Moderate bilateral neural fora sreekanth stenosis. C4-5: 5 mm of retrolisthesis. Severe disc height loss with mild circumferential disc osteophyte compl ex. Mild facet hypertrophy. Severe spinal canal stenosis with spinal cord compression and abnormal T2 hyperintense spinal cord signal. Severe right and moderate left neural foraminal stenosis. C5-6: 4 mm of retrolisthesis. Severe disc height loss. Circumferential disc osteophyte complex with l eft greater than right uncovertebral and facet hypertrophy. Moderate spinal canal stenosis. Severe le ft and mild right neural foraminal stenosis. C6-7: Mild disc height loss with broad-based disc osteophyte complex and left greater than right unco vertebral and facet hypertrophy. Mild spinal canal stenosis. Severe left and mild right neural forami nal stenosis. C7-T1: Moderate to severe disc height loss with broad-based posterior disc osteophyte complex and lef t greater than right facet hypertrophy. Mild spinal canal stenosis. Mild bilateral neural foraminal s tenosis. Upper thoracic spine: Minimal anterior listhesis of T1 over T2 and T2 over T3 with associated facet h ypertrophy and mild to moderate bilateral neural foraminal stenosis. IMPRESSION: Multilevel degenerative disc disease and facet hypertrophy with multiple alignment abnormalities. Fin dings are most severe at C4-C5 where there is spinal cord compression and abnormal T2 hyperintense sp inal cord signal. Please see above report for level by level description. Report Dictated By: Olivier Pat MD at 05/23/2017 2:39 PM Report E-Signed By: Olivier Pat MD at 05/23/2017 2:48 PM WSN:[email or web address]
== END ==
LOC: MRI 01:06
PROVIDERS: ATTEND Emergency Medicine
DX: G31.9 Degenerative disease of nervous system, unspecified (principal); J32.4 Chronic pansinusitis; I87.9 Disorder of vein, unspecified; M47.899 Other spondylosis, site unspecified
CPT/HCPCS: 70553; 72156

== ENCOUNTER → 2017-05-30 | Outpatient (CLI) | payer MEDICARE ==
[2017-05-08 09:19] VITALS: BMI 25.8
== END ==
LOC: LAB 15:11
PROVIDERS: ATTEND Emergency Medicine
DX: E87.1 Hypo-osmolality and hyponatremia (principal)
CPT/HCPCS: 36415; 82310; 82374; 82435; 82565; 82947; 84132; 84295; 84520

== ENCOUNTER → 2017-07-02 | Outpatient (CLI) | payer MEDICARE ==
[2017-05-08 09:19] VITALS: BMI 25.8
[2017-07-02 14:16] LABS: PLATELET COUNT, AUTOMATED 420 K/uL (150-450)
[2017-07-02 14:31] LABS: LDL CHOLESTEROL 110 mg/dl
== END ==
LOC: LAB 13:41
PROVIDERS: ATTEND Emergency Medicine
DX: I10 Essential (primary) hypertension (principal); R73.9 Hyperglycemia, unspecified
CPT/HCPCS: 36415; 82040; 82247; 82310; 82374; 82435; 82465; 82565; 82947; 83036; 83718; 84075; 84132; 84155; 84295; 84450; 84460; 84478; 84520; 85025

== ENCOUNTER → 2017-08-27 | Outpatient (CLI) | payer MEDICARE ==
[2017-05-08 09:19] VITALS: BMI 25.8
== END ==
LOC: LAB 13:06
PROVIDERS: ATTEND Emergency Medicine
DX: E87.1 Hypo-osmolality and hyponatremia (principal)
CPT/HCPCS: 36415; 82310; 82374; 82435; 82565; 82947; 84132; 84295; 84520

== ENCOUNTER → 2017-09-24 | Outpatient (CLI) | payer MEDICARE ==
[2017-05-08 09:19] VITALS: BMI 25.8
== END ==
LOC: LAB 13:22
PROVIDERS: ATTEND Emergency Medicine
DX: E87.1 Hypo-osmolality and hyponatremia (principal)
CPT/HCPCS: 36415; 82310; 82374; 82435; 82565; 82947; 84132; 84295; 84520

== ENCOUNTER → 2017-10-31 | Outpatient (CLI) | payer MEDICARE ==
[2017-05-08 09:19] VITALS: BMI 25.8
== END ==
LOC: LAB 07:54
PROVIDERS: ATTEND Internal Medicine Nephrology
DX: Z13.9 Encounter for screening, unspecified (principal)
CPT/HCPCS: 36415; 82040; 82247; 82310; 82374; 82435; 82533; 82565; 82947; 83930; 83935; 84075; 84132; 84133; 84155; 84295; 84300; 84443; 84450; 84460; 84520

== ENCOUNTER → 2017-11-12 | Outpatient (CLI) | payer MEDICARE ==
[2017-05-08 09:19] VITALS: BMI 25.8
== END ==
LOC: LAB 14:39
PROVIDERS: ATTEND Internal Medicine Nephrology
DX: E87.1 Hypo-osmolality and hyponatremia (principal); E11.9 Type 2 diabetes mellitus without complications; I10 Essential (primary) hypertension; R60.9 Edema, unspecified
CPT/HCPCS: 36415; 82310; 82374; 82435; 82565; 82947; 83935; 84132; 84295; 84520

== ENCOUNTER → 2017-12-13 | Outpatient (CLI) | payer MEDICARE ==
[2017-05-08 09:19] VITALS: BMI 25.8
[~2017-12-13] MED LIST changes: +DIPH0.5D12 IM; +SODI100037 MC; +TRIA15OI20 TP; -[UNRECOGNIZED DRUG - CODE] MC
== END ==
LOC: LAB 14:03
PROVIDERS: ATTEND Emergency Medicine
DX: Z02.9 Encounter for administrative examinations, unspecified (principal)

== ENCOUNTER → 2018-01-03 | Outpatient (CLI) | payer MEDICARE ==
[2017-05-08 09:19] VITALS: BMI 25.8
== END ==
LOC: LAB 14:04
PROVIDERS: ATTEND Emergency Medicine
DX: H34.8392 Tributary (branch) retinal vein occlusion, unspecified eye, stable (principal); E11.9 Type 2 diabetes mellitus without complications
CPT/HCPCS: 36415; 81240; 81241; 83036; 85300; 85303; 85306; 85307; 85610; 85613; 85730; 86146

== ENCOUNTER → 2018-02-21 | Outpatient (CLI) | payer MEDICARE ==
[2017-05-08 09:19] VITALS: BMI 25.8
[~2018-02-21] MED LIST changes: +CLOT15CR63 TP
== END ==
LOC: LAB 12:07
PROVIDERS: ATTEND Psychiatry & Neurology Neurology
DX: G60.9 Hereditary and idiopathic neuropathy, unspecified (principal)
CPT/HCPCS: 36415; 82525; 82607; 82746; 83921; 84165; 84207; 86038; 86140; 86200; 86430

== ENCOUNTER → 2018-03-21 | Outpatient (CLI) | payer MEDICARE ==
[2017-05-08 09:19] VITALS: BMI 25.8
== END ==
LOC: LAB 14:14
PROVIDERS: ATTEND Internal Medicine Nephrology
DX: E87.1 Hypo-osmolality and hyponatremia (principal); I10 Essential (primary) hypertension
CPT/HCPCS: 36415; 82310; 82374; 82435; 82565; 82947; 83935; 84132; 84295; 84520

== ENCOUNTER → 2018-05-28 | Outpatient (CLI) | payer MEDICARE ==
[2017-05-08 09:19] VITALS: BMI 25.8
--- NOTE | 2018-05-29 08:41 | RADIOLOGY IMAGING REPORT ---
FACILITY: [facility] [place] PATIENT NAME: RAJEEV CHU : [id number] MR: [id number] V: [id number] EXAM DATE: ORDERING PHYSICIAN: TASNEEM LOWRY TECHNOLOGIST: Joselin Negrete PROCEDURE:BILATERAL DIGITAL SCREENING MAMMOGRAM WITH CAD ASSISTED INTERPRETATION & 3D TOMOSYNTHESIS COMPARISON:Prior mammograms 04/23/17, 04/17/16, 04/14/15, 04/13/14, 02/18/13, 02/05/12. INDICATIONS:SCREENING FINDINGS: There are scattered areas of fibroglandular density throughout the breasts. There is an area of postsurgical scaring with architectural distortion in the upper outer quadrant of the Left breast from prior lumpectomy. The parenchymal pattern has remained stable allowing for difference in mammographic technique & patient positioning. DIAGNOSTIC CATEGORY 2--BENIGN FINDING. RECOMMENDATIONS: ROUTINE MAMMOGRAM AND CLINICAL EVALUATION. IMPRESSION: BIRADS 2: Benign finding. No significant abnormality is seen at this time. Dictated by: Ella Hebert M.D. on 05/28/2018 at 16:10 Transcribed by: DOUGLAS on 05/28/2018 at 16:19 Approved by: Ella Hebert M.D. on 05/29/2018 at 8:40 [facility]
== END ==
LOC: MAMO 01:47
PROVIDERS: ATTEND Emergency Medicine
DX: Z12.31 Encounter for screening mammogram for malignant neoplasm of breast (principal)
CPT/HCPCS: 77063; 77067

== ENCOUNTER → 2018-06-13 | Outpatient (CLI) | payer MEDICARE ==
[2017-05-08 09:19] VITALS: BMI 25.8
== END ==
LOC: LAB 14:10
PROVIDERS: ATTEND Emergency Medicine
DX: E11.9 Type 2 diabetes mellitus without complications (principal)
CPT/HCPCS: 36415; 83036

== ENCOUNTER → 2018-07-15 | Outpatient (CLI) | payer MEDICARE ==
[2017-05-08 09:19] VITALS: BMI 25.8
[~2018-07-15] MED LIST changes: -DIPH0.5D12 IM; +DIPH0.5S2 IM
[2018-07-15 09:44] LABS: PLATELET COUNT, AUTOMATED 391 K/uL (150-450)
== END ==
LOC: LAB 09:24
PROVIDERS: ATTEND Emergency Medicine
DX: R21 Rash and other nonspecific skin eruption (principal)
CPT/HCPCS: 36415; 85025

== ENCOUNTER 2018-07-16 11:36 | Emergency (ER) | payer MEDICARE ==
[2017-05-08 09:19] VITALS: Wt 90.7 kg
[2018-07-16] MEDS ORDERED: NS(*) 0.9% 1000 ML BAG 1,000 ML IV ONE (11:41)
--- NOTE | 2018-07-16 11:45 | ER Report ---
History and Physical Time Seen By MD: 11:44 (ANTONIO VEGA MD) HPI/ROS CHIEF COMPLAINT: Fall, altered mental status HISTORY OF PRESENT ILLNESS: The electronic medical record was used to obtain past medical history as patient is having difficulty being febrile. Apparently was seen yesterday and diagnosed with shingles but was still too late to start treatment but there were concerned about the possibility of secondary cellulitis and patient was started on Bactrim. She had a white blood cell count that was normal at was drawn yesterday. Patient states she does not recall when she fell but believes it was last evening. She did speak with her daughter and felt fine at that time prior to the fall. She been on the floor most of the night into this morning. The patient's cousin normally sees her every day and when she did not answer her phone she did a wellness check and EMS found the patient lying face down on the floor unable to get up and incontinent of urine. Patient complains of some right shoulder pain left forearm pain she is having some pelvic pain as well. She denies any headache although it does appear that she may have struck her head. Patient is confused and having difficulty finding words however but speech seems normal according to the patient's cousin. She has chronic right shoulder pain and limited range of motion to that right shoulder she also has limited range of motion to the left shoulder secondary to arthritis. REVIEW OF SYSTEMS: Constitutional: No fever, no chills. Eyes: No discharge. ENT: No sore throat. Cardiovascular: No chest pain, no palpitations. Respiratory: No cough, no shortness of breath. Gastrointestinal: No abdominal pain, no vomiting. Genitourinary: No hematuria. Musculoskeletal: Chronic right shoulder pain and inability Skin: No rashes. Neurological: No headache. (ANTONIO VEGA MD) Allergies: Coded Allergies: Penicillins (Verified Allergy, Mild, 02/19/08) Thiazides (Verified Adverse Reaction, Unknown, 11/12/17) Home Meds Active Scripts Sulfamethoxazole/Trimet 800-160 Mg Tab (BACTRIM DS TABLET) 1 Each Tablet, 1 TAB PO Q12H, #20 TAB Prov:ATSNEEM LOWRY MD 07/15/18 Propranolol Hcl (PROPRANOLOL HCL) 40 Mg Tablet, 1 TAB PO BID, #60 TAB 0 Refills Prov:TASNEEM LOWRY MD 02/25/18 Lisinopril (LISINOPRIL) 10 Mg Tablet, 10 MG PO QDAY, #90 TAB 3 Refills Prov:TASNEEM LOWRY MD 02/18/18 Omeprazole (OMEPRAZOLE) 20 Mg Capsule., 1 CAP PO DAILY, #90 CAP 3 Refills Prov:TASNEEM LOWRY MD 12/17/17 Triamcinolone Acetonide 0.1% Oint 15 Gm Tube (TRIAMCINOLONE ACETONIDE 0.1% 15 GM TUBE) 15 Gm Oint...g., 15 GM TP DAILY, #1 TUBE 11 Refills Prov:TASNEEM LOWRY MD 12/17/17 Reported Medications Furosemide (FUROSEMIDE) Unknown Strength Tablet, PO DAILY, TAB 11/12/17 Keno-3 Fatty Acids (FISH OIL) 500 Mg Capsule.dr, 1000 MG PO 04/15/14 Past Medical/Surgical History Past medical history significant for sciatica, gastroesophageal reflux disease, osteoarthritis and history of SIADH, history of depression, history of breast cancer with left breast lumpectomy, history of palpitations and hypertension past surgical history for cholecystectomy, hysterectomy and lumpectomy in 2005. She's also had a total joint knee replacement in 2007 (ANTONIO VEGA MD) Smoking Status: Never Smoker Hx Alcohol Use: No (ANTONIO VEGA MD) Constitutional Vital Sign - Last 24 Hours 07/16/18 07/16/18 07/16/18 07/16/18 11:36 11:53 12:06 12:21 Pulse 163 143 Resp 20 11 B/P (MAP) 121/74 (90) 133/89 (104) Pulse Ox 94 07/16/18 07/16/18 07/16/18 07/16/18 12:27 12:30 12:36 12:54 Temp 99.3 99.1 Pulse 131 Resp 20 B/P (MAP) 117/95 (102) Pulse Ox 96 07/16/18 07/16/18 07/16/18 07/16/18 13:00 13:06 14:00 14:01 Pulse 127 103 Resp 12 B/P (MAP) 118/82 (94) 95/80 (85) 109/91 (97) Pulse Ox 86 84 07/16/18 07/16/18 07/16/18 14:30 15:00 15:28 Temp 99.6 Pulse 114 106 Resp 16 13 B/P (MAP) 105/59 (74) 130/71 (90) (TAY MEDRANO DO) Physical Exam General/Constitutional: Patient is awake, alert, nontoxic and in no acute respiratory distress. Head: Abrasion to right forehead Eyes: Conjunctival clear, Pupils are equal and reactive to light. Extraocular muscles are intact and symmetrical. Sclera are clear and anicteric. Ears:External canals are clear. Tympanic membranes are clear with normal landmarks and light reflex. Nares: No rhinorrhea or bleeding. Turbinates are pink and moist. Oropharyngeal: Mucous membranes are moist. There is no pharyngeal erythema or exudate. There are no palatal petechiae. Uvula is midline and symmetrical. Neck: Supple, no adenopathy. Cardiovascular: Heart is irregularly irregular and tachycardic Pulmonary: Lungs are clear to auscultation bilaterally. There are no wheezes, rales, or rhonchi. Chest rise is symmetrical Abdomen: Soft, nontender, no guarding or peritoneal signs. Extremities: No gross deformities, No peripheral cyanosis. Patient is able to lift both legs off the gurney. She does appear to have some tenderness to pelvic loading without obvious deformity. Patient is able to give a thumbs up on both right and left hand although her mobility at the shoulder is extremely limited but this is chronic. Neuro: Alert and oriented X3, Cranial nerves 2 thru 12 are intact and symmetrical. Skin: No rashes, skin is warm dry and well perfused. NIH Stroke Scale: Level of consciousness: Alert -0 Answers both questions correctly-0 Performs both tasks correctly-0 Best Gaze: Normal-0 Visual: No visual loss-0 Facial Palsy: Normal, symmetrical movements-0 Motor Left Arm: 1 Drift; limb holds but drifts downward before full 10 seconds-1 Motor Right Arm: 1 Drift; limb holds but drifts downward before full 10 seconds-1 Motor Left Leg: No drift for 5 seconds-0 Motor Right Leg: No drift for 5 seconds-0 Limb Ataxia: Absent-0 Sensory: Normal, no sensory loss-0 Best Language: Mild to moderate-1 Dysarthria: Normal-0 Extinction and Inattention: No abnormality-0 (ANTONIO VEGA MD) Medical Decision Making Data Points Result Diagram: 07/16/18 1137 07/16/18 1137 Laboratory Hematology Test 07/16/18 11:37 07/16/18 11:50 07/16/18 11:54 07/16/18 15:44 Red Blood Count 4.59 M/uL (4.17-5.56) Mean Corpuscular Volume 90.0 fL (80.0-96.0) Mean Corpuscular Hemoglobin 30.5 pg (26.0-33.0) Mean Corpuscular Hemoglobin Concent 33.9 g/dL (32.0-36.0) Red Cell Distribution Width 13.7 % (11.5-14.5) Mean Platelet Volume 7.8 fL (7.2-11.1) Neutrophils (%) (Auto) 84.2 % (39.4-72.5) Lymphocytes (%) (Auto) 7.1 % (17.6-49.6) Monocytes (%) (Auto) 8.4 % (4.1-12.4) Eosinophils (%) (Auto) 0.0 % (0.4-6.7) Basophils (%) (Auto) 0.3 % (0.3-1.4) Nucleated RBC Relative Count (auto) 0.0 /100WBC Neutrophils # (Auto) 12.1 K/uL (2.0-7.4) Lymphocytes # (Auto) 1.0 K/uL (1.3-3.6) Monocytes # (Auto) 1.2 K/uL (0.3-1.0) Eosinophils # (Auto) 0.0 K/uL (0.0-0.5) Basophils # (Auto) 0.0 K/uL (0.0-0.1) Nucleated RBC Absolute Count (auto) 0.00 K/uL Prothrombin Time 13.5 seconds (12.0-14.4) Prothromb Time International Ratio 1.03 Activated Partial Thromboplast Time 29 seconds (23-35) Sodium Level 134 mmol/L (137-145) Potassium Level 4.3 mmol/L (3.5-5.0) Chloride Level 100 mmol/L (98-107) Carbon Dioxide Level 21 mmol/L (22-31) Blood Urea Nitrogen 22 mg/dl (7-18) Creatinine 0.90 mg/dl (0.52-1.04) Glomerular Filtration Rate Calc > 60.0 Random Glucose 177 mg/dl (75-110) Osmolality 285 mOSM/K (275-295) Lactate 2.0 mmol/L (0.7-2.1) Calcium Level 10.0 mg/dl (8.4-10.2) Magnesium Level 1.8 mg/dl (1.7-2.2) Total Bilirubin 0.6 mg/dl (0.2-1.3) Aspartate Amino Transf (AST/SGOT) 37 U/L (0-35) Alanine Aminotransferase (ALT/SGPT) 19 U/L (0-56) Alkaline Phosphatase 102 U/L (0-126) Total Creatine Kinase 747 U/L (30-135) B-Type Natriuretic Peptide 276 pg/ml (0-100) Total Protein 7.7 g/dl (6.3-8.2) Albumin 4.5 g/dl (3.5-5.0) Urine Color Yellow Urine Clarity Clear Urine pH 5.0 pH (4.8-9.5) Urine Specific [place] 1.023 Urine Protein 30 mg/dL (NEGATIVE) Urine Glucose (UA) Negative mg/dL (NEGATIVE) Urine Ketones 20 mg/dL (NEGATIVE) Urine Blood Negative (NEGATIVE) Urine Nitrite Negative (NEGATIVE) Urine Bilirubin Negative (NEGATIVE) Urine Urobilinogen Negative mg/dL (0.2-1.9) Urine Leukocyte Esterase Negative (NEGATIVE) Urine RBC 1 /HPF (0-2/HPF) Urine WBC 1 /HPF (0-5/HPF) Urine Squamous Epithelial Cells Many /LPF (NONE-FEW) Urine Bacteria Negative /HPF (NONE-FEW) Urine Mucus Few /HPF (NONE-FEW) Urine Osmolality 725 mosm/K (500-800) Urine Random Creatinine 114.8 mg/dl Urine Random Sodium 75 MEQ/L Troponin I 0.062 ng/ml Chemistry Test 07/16/18 11:37 07/16/18 11:50 07/16/18 11:54 07/16/18 15:44 White Blood Count 14.4 k/uL (4.5-11.0) Red Blood Count 4.59 M/uL (4.17-5.56) Hemoglobin 14.0 g/dL (12.0-16.0) Hematocrit 41.3 % (34.0-47.0) Mean Corpuscular Volume 90.0 fL (80.0-96.0) Mean Corpuscular Hemoglobin 30.5 pg (26.0-33.0) Mean Corpuscular Hemoglobin Concent 33.9 g/dL (32.0-36.0) Red Cell Distribution Width 13.7 % (11.5-14.5) Platelet Count 449 K/uL (150-450) Mean Platelet Volume 7.8 fL (7.2-11.1) Neutrophils (%) (Auto) 84.2 % (39.4-72.5) Lymphocytes (%) (Auto) 7.1 % (17.6-49.6) Monocytes (%) (Auto) 8.4 % (4.1-12.4) Eosinophils (%) (Auto) 0.0 % (0.4-6.7) Basophils (%) (Auto) 0.3 % (0.3-1.4) Nucleated RBC Relative Count (auto) 0.0 /100WBC Neutrophils # (Auto) 12.1 K/uL (2.0-7.4) Lymphocytes # (Auto) 1.0 K/uL (1.3-3.6) Monocytes # (Auto) 1.2 K/uL (0.3-1.0) Eosinophils # (Auto) 0.0 K/uL (0.0-0.5) Basophils # (Auto) 0.0 K/uL (0.0-0.1) Nucleated RBC Absolute Count (auto) 0.00 K/uL Prothrombin Time 13.5 seconds (12.0-14.4) Prothromb Time International Ratio 1.03 Activated Partial Thromboplast Time 29 seconds (23-35) Glomerular Filtration Rate Calc > 60.0 Osmolality 285 mOSM/K (275-295) Lactate 2.0 mmol/L (0.7-2.1) Calcium Level 10.0 mg/dl (8.4-10.2) Magnesium Level 1.8 mg/dl (1.7-2.2) Total Bilirubin 0.6 mg/dl (0.2-1.3) Aspartate Amino Transf (AST/SGOT) 37 U/L (0-35) Alanine Aminotransferase (ALT/SGPT) 19 U/L (0-56) Alkaline Phosphatase 102 U/L (0-126) Total Creatine Kinase 747 U/L (30-135) B-Type Natriuretic Peptide 276 pg/ml (0-100) Total Protein 7.7 g/dl (6.3-8.2) Albumin 4.5 g/dl (3.5-5.0) Urine Color Yellow Urine Clarity Clear Urine pH 5.0 pH (4.8-9.5) Urine Specific [place] 1.023 Urine Protein 30 mg/dL (NEGATIVE) Urine Glucose (UA) Negative mg/dL (NEGATIVE) Urine Ketones 20 mg/dL (NEGATIVE) Urine Blood Negative (NEGATIVE) Urine Nitrite Negative (NEGATIVE) Urine Bilirubin Negative (NEGATIVE) Urine Urobilinogen Negative mg/dL (0.2-1.9) Urine Leukocyte Esterase Negative (NEGATIVE) Urine RBC 1 /HPF (0-2/HPF) Urine WBC 1 /HPF (0-5/HPF) Urine Squamous Epithelial Cells Many /LPF (NONE-FEW) Urine Bacteria Negative /HPF (NONE-FEW) Urine Mucus Few /HPF (NONE-FEW) Urine Osmolality 725 mosm/K (500-800) Urine Random Creatinine 114.8 mg/dl Urine Random Sodium 75 MEQ/L Troponin I 0.062 ng/ml Coagulation Test 07/16/18 11:37 Prothrombin Time 13.5 seconds Prothromb Time International Ratio 1.03 Activated Partial Thromboplast Time 29 seconds Urinalysis Test 07/16/18 11:50 07/16/18 11:54 Urine Color Yellow Urine Clarity Clear Urine pH 5.0 pH (4.8-9.5) Urine Specific [place] 1.023 Urine Protein 30 mg/dL (NEGATIVE) Urine Glucose (UA) Negative mg/dL (NEGATIVE) Urine Ketones 20 mg/dL (NEGATIVE) Urine Blood Negative (NEGATIVE) Urine Nitrite Negative (NEGATIVE) Urine Bilirubin Negative (NEGATIVE) Urine Urobilinogen Negative mg/dL (0.2-1.9) Urine Leukocyte Esterase Negative (NEGATIVE) Urine RBC 1 /HPF (0-2/HPF) Urine WBC 1 /HPF (0-5/HPF) Urine Squamous Epithelial Cells Many /LPF (NONE-FEW) Urine Bacteria Negative /HPF (NONE-FEW) Urine Mucus Few /HPF (NONE-FEW) Urine Osmolality 725 mosm/K (500-800) Urine Random Creatinine 114.8 mg/dl Urine Random Sodium 75 MEQ/L (LAURORA,TAY V DO) EKG/Imaging EKG Interpretation EKG shows atrial fibrillation with rapid ventricular response with a ventricular rate of 139 bpm. Patient appears to also have a intraventricular conduction delay of undetermined origin. Compared to an EKG from April 2017 atrial fibrillation has replaced sinus rhythm. Monitor Interpretation: Atrial Fibrillation Imaging FACILITY: [facility] PATIENT NAME: Latoya Auguste : 1940 MR: [id number] V: [id number] EXAM DATE: [id number] ORDERING PHYSICIAN: ANTONIO VEGA TECHNOLOGIST: Location: [facility] Patient: Latoya Auguste : 1940 Visit/Account:[id number] Date of Sevice: 07/16/2018 CT Head without contrast Indication: Left side facial droop. Fall. Comparison: 05/08/2017. MR brain 05/23/2017. Technique: Axial CT images were obtained through the brain from the skull base to the vertex without administration of IV contrast. Reformatted coronal and sagittal images were also obtained. One of the following dose optimization techniques was utilized in the performance of this exam: automated exposure control; adjustment of the mA and/or kV according to the patient's size; or use of an iterative reconstruction technique. Specific details can be referenced in the facility's radiology CT exam operational policy. Findings: No evidence of mass, mass effect, or midline shift. No acute intracranial hemorrhage or acute territorial infarction. No extra-axial fluid collection or hydrocephalus. Mild age-related cerebral atrophy. Mild periventricular white matter ischemic changes consistent small vessel disease. Mendenhall/white matter differentiation appears normal. Bony structures show no fractures or lesions. There is a stable mild bony exostosis off the right frontal bone in the extra-axial compartment. This is likely benign and is unchanged. Continued opacification of both maxillary sinuses and almost complete opacification of the ethmoid sinuses. Opacification of the right frontal sinus. These sinuses do show mild increased attenuation consistent chronic sinus disease and are stable. The remaining sinuses and mastoids visualized are clear. Small amount of debris in the left external auditory canal. IMPRESSION: 1. Continued senescent changes without acute abnormality. 2. Continued chronic sinus disease. I called noncontrast head CT report to ANTONIO VEGA at 07/16/2018 12:20 PM. Report Dictated By: Chris Adams at 07/16/2018 12:19 PM Report E-Signed By: Chris Adams at 07/16/2018 12:22 PM WSN:[id number] (ANTONIO VEGA MD) ED Course/Re-evaluation ED Course 07/16/2018 12:30:18 pm patient with altered mental status and dysarthria. A CT scan of the brain showed no acute findings or hemorrhage. Awaiting on other imaging. Patient also in new onset atrial fibrillation with rapid ventricular r esponse. We'll start diltiazem at 10 mg bolus and then 5 mg per hour. Awaiting CT scan of facial bones, C-spine x-ray of the right shoulder, left forearm and pelvis. Because of the dysarthria. NIH stroke scale is 3 based on some aphasia along with inability to raise either the right or left arm however the movement of the arms is felt related to the patient's severe arthritis to bilateral shoulders. Patient was made a stroke alert. However the timing of the symptoms is unclear so I do not believe the patient would be a good candidate for thrombolytics at this time as an NIH stroke scale is low further there is unclear onset of symptoms which certainly could be greater than 4.5 hours. 07/16/2018 12:48:02 pm ventricular rate has improved to 10 5 bpm after infusion of diltiazem bolus at 10 mg and drip at 5 mg per hour. (ANTONIO VEGA MD) ED Course [address] Lan, Hospitalist at [facility], accepts patient to his service with neurologist Dr. High as business systems consultant. Pushed lmages to [facility]. Will copy ekgs (initial is afib and had a repeat when she converted to NS on her own) and chart for [facility]. working on transportation. Pt and family aware she is being transfered. 07/16/2018 5:00:17 pm PT has been in sinus for over 2 hours. Will stop the Diltiazam and monitor. If continues to be stable off gtt will transfer off gtt Decision to Disposition Date: Jul 16, 2018 Decision to Disposition Time: 15:54 (TAY MEDRANO DO) Depart Departure Latest Vital Signs Vital Signs Date Time Temp Pulse Resp B/P (MAP) Pulse Ox O2 Delivery O2 Flow Rate FiO2 07/16/18 15:28 99.6 07/16/18 15:00 106 13 130/71 (90) 07/16/18 14:00 84 (TAY MEDRANO DO) Impression: Primary Impression: CVA (cerebral vascular accident) Additional Impression: Paroxysmal A-fib Condition: Condition Unchanged Disposition: XFER TO [facility]UTE [facility]ARE [facility] Referrals: TASNEEM LOWRY MD (PCP) Problem Qualifiers Primary Impression: CVA (cerebral vascular accident) CVA mechanism: unspecified Qualified Codes: I63.9 - Cerebral infarction, unspecified ANTONIO VEGA MD Jul 16, 2018 11:45 TAY MEDRANO DO Jul 16, 2018 15:59
--- NOTE | 2018-07-16 11:46 | EKG ---
FACILITY: [facility] PATIENT NAME: RAJEEV CHU : [id number] MR: [id number] V: [id number] EXAM DATE: ORDERING PHYSICIAN: ANTONIO VEGA TECHNOLOGIST: GOOD Jin Reason : WEANESS Blood Pressure : / mmHG Vent. Rate : 139 BPM Atrial Rate : 108 BPM P-R Int : 000 ms QRS Dur : 116 ms QT Int : 330 ms P-R-T Axes : 000 230 050 degrees QTc Int : 502 ms Atrial fibrillation Anteroseptal infarct (cited on or before 20-MAR-2017) Incomplete left bundle branch block Abnormal ECG When compared with ECG of 08-MAY-2017 02:38, QRS duration has increased Criteria for Inferior infarct are no longer present Non-specific change in ST segment in Anterior leads T wave inversion no longer evident in Anterior leads Nonspecific T wave abnormality now evident in Lateral leads Confirmed by WILLIE GARZA ([id number]) on 07/16/2018 5:01:27 PM Referred By: GARY Confirmed By:WILLIE GARZA
[2018-07-16 11:56] LABS: PLATELET COUNT, AUTOMATED 449 K/uL (150-450)
[2018-07-16 12:02] LABS: INR 1.03
[2018-07-16] MEDS ORDERED: DILTIAZEM HCL 125 MG/25 ML SDV 125 MG in NS(*) 0.9% 100 ML BAG 100 ML IV ONE (12:15)
[2018-07-16] MEDS ORDERED: DILTIAZEM 5 MG/ML 5ML IVPUSH IVP ONE (12:15)
--- NOTE | 2018-07-16 12:27 | RADIOLOGY IMAGING REPORT ---
FACILITY: [facility] [place] PATIENT NAME: Latoya Auguste : 1940 MR: [id number] V: [id number] EXAM DATE: ORDERING PHYSICIAN: ANTONIO VEGA TECHNOLOGIST: Location: [facility] Patient: Latoya Auguste : 1940 Visit/Account:[id number] Date of Sevice: 07/16/2018 CT Head without contrast Indication: Left side facial droop. Fall. Comparison: 05/08/2017. MR brain 05/23/2017. Technique: Axial CT images were obtained through the brain from the skull base to the vertex without administration of IV contrast. Reformatted coronal and sagittal images were also obtained. One of the following dose optimization techniques was utilized in the performance of this exam: autom ated exposure control; adjustment of the mA and/or kV according to the patient's size; or use of an i terative reconstruction technique. Specific details can be referenced in the facility's radiology CT exam operational policy. Findings: No evidence of mass, mass effect, or midline shift. No acute intracranial hemorrhage or acute territorial infarction. No extra-axial fluid collection or hydrocephalus. Mild age-related cerebral atrophy. Mild periventric ular white matter ischemic changes consistent small vessel disease. Mendenhall/white matter differentiation appears normal. Bony structures show no fractures or lesions. There is a stable mild bony exostosis off the right fro ntal bone in the extra-axial compartment. This is likely benign and is unchanged. Continued opacification of both maxillary sinuses and almost complete opacification of the ethmoid si nuses. Opacification of the right frontal sinus. These sinuses do show mild increased attenuation con sistent chronic sinus disease and are stable. The remaining sinuses and mastoids visualized are clear . Small amount of debris in the left external auditory canal. IMPRESSION: 1. Continued senescent changes without acute abnormality. 2. Continued chronic sinus disease. I called noncontrast head CT report to ANTONIO VEGA at 07/16/2018 12:20 PM. Report Dictated By: Chris Adams at 07/16/2018 12:19 PM Report E-Signed By: Chris Adams at 07/16/2018 12:22 PM WSN:[id number]
[2018-07-16] MEDS ORDERED: ACETAMINOPHEN(*)1000 MG/100 ML 100 ML IVPB ONE (12:45)
--- NOTE | 2018-07-16 12:53 | RADIOLOGY IMAGING REPORT ---
FACILITY: [facility] PATIENT NAME: Latoya Auguste : 1940 MR: [id number] V: [id number] EXAM DATE: ORDERING PHYSICIAN: ANTONIO VEGA TECHNOLOGIST: Location: [facility] Patient: Latoya Auguste : 1940 Visit/Account:[id number] Date of Sevice: 07/16/2018 EXAMINATION: CT facial bones without IV contrast HISTORY: Fall. Left-sided facial droop. COMPARISON: None. TECHNIQUE: Axial images were obtained from the superior aspect of the orbits through the inferior as pect of mandible. Coronal and sagittal reformatted images were obtained from the axial source data. N o IV contrast was administered. One of the following dose optimization techniques was utilized in the performance of this exam: Autom ated exposure control; adjustment of the mA and/or kV according to the patient's size; or use of an i terative reconstruction technique. Specific details can be referenced in the facility's radiology C T exam operational policy. FINDINGS: No fracture. The orbits are intact. Soft tissues orbits are symmetric without focal abnormality. Temp oromandibular joints are intact and symmetric. No bony lesions. Cervical spine shows diffuse degenera tive changes with posterior listhesis of C4 over C5 due to degenerative changes causing mild canal aimee ny narrowing. There is chronic opacification of both maxillary and right frontal sinuses near complet e opacification both ethmoid sinuses. The remaining sinuses and mastoids visualized are clear. The si nus disease does show mild increased attenuation consistent chronic. Both ostiomeatal complexes are o bscured. Visualized brain shows no acute abnormality. IMPRESSION: 1. No evidence of acute facial bone fracture. 2. Chronic sinus disease. 3. Degenerative changes of the cervical spine. Report Dictated By: Chris Adams at 07/16/2018 12:37 PM Report E-Signed By: Chris Adams at 07/16/2018 12:48 PM WSN:[id number]
--- NOTE | 2018-07-16 12:59 | RADIOLOGY IMAGING REPORT ---
[place] [facility] [place]: Latoya Auguste : 1940 MR: [id number] V: [id number] EXAM DATE: ORDERING PHYSICIAN: ANTONIO VEGA TECHNOLOGIST: [place] [facility] [place]: Latoya Auguste : 1940 Visit/Account:[id number] Date of Sevice: 07/16/2018 CT Cervical Spine Indication: Fall. Comparison: MR cervical spine 05/23/2017. Technique: Axial CT imaging of the cervical spine was performed. 2-D sagittal and coronal CT reforma ts were also obtained. One of the following dose optimization techniques was utilized in the performance of this exam: autom ated exposure control; adjustment of the mA and/or kV according to the patient's size; or use of an i terative reconstruction technique. Specific details can be referenced in the facility's radiology CT exam operational policy. Findings: There is continued posterior spondylolisthesis of C4 over C5 of 4 mm, due to degenerative changes.. T his does cause bony canal stenosis. This is not changed from the previous MR. The remaining vertebral bodies are aligned. No indication of acute fracture or facet dislocation. No bony lesions. Diffuse d egenerative changes are moderate to severe include disc space narrowing, endplate changes, osteophyte s and facet arthropathy. No other areas of bony canal stenosis. Multilevel neural foramina narrowing. The endplates are maintained. No obvious disc herniation. Prevertebral soft tissues and surrounding soft tissues are unremarkable. Lung apices are clear. Chronic sinus disease of both maxillary and eth moid sinuses. The remaining sinuses and mastoids visualized are clear. Small amount of debris in the external auditory canal on the left side. Impression: 1. No acute osseous or acute alignment abnormality of the cervical spine 2. Diffuse continued degenerative changes as above which are stable. 3. Chronic sinus disease. Report Dictated By: Chris Adams at 07/16/2018 12:48 PM Report E-Signed By: Chris Adams at 07/16/2018 12:54 PM WSN:[id number]
[2018-07-16] MEDS ORDERED: MORPHINE 2 MG/ML SYR IVP ONE ×2 (13:05→17:00)
--- NOTE | 2018-07-16 13:22 | RADIOLOGY IMAGING REPORT ---
FACILITY: [facility] PATIENT NAME: Latoya Auguste : 1940 MR: [id number] V: [id number] EXAM DATE: ORDERING PHYSICIAN: ANTONIO VEGA TECHNOLOGIST: [place] [facility] [place] : 1940 Visit/Account:[id number] Date of Sevice: 07/16/2018 Exam type: FOREARM LEFT History: fall Comparison: None. Findings: Two views the left forearm demonstrate no gross evidence of acute fracture or dislocation involving t he left radius or ulna. An IV catheter is noted in the antecubital fossa. Incidentally noted are ma rked sclerotic changes with adjacent bony fragments at the first carpometacarpal articulation. This is not ideally visualized due to overlapping shadows however differential diagnosis would include chr onic degenerative changes although an acute fracture not totally ruled out. IMPRESSION: 1. No gross evidence of acute fracture-dislocation involving the left radius or ulna Marked sclerotic changes with adjacent bony fragments at the first carpometacarpal articulation. Thi s is not ideally visualized due to overlapping shadows however the differential diagnosis would inclu de chronic degenerative changes versus an acute fracture. Clinical correlation needed Report Dictated By: Ella Hebert MD at 07/16/2018 1:12 PM Report E-Signed By: Ella Hebert MD at 07/16/2018 1:17 PM WSN:[email or web address]
--- NOTE | 2018-07-16 13:25 | RADIOLOGY IMAGING REPORT ---
FACILITY: [facility] PATIENT NAME: Latoya Auguste : 1940 MR: [id number] V: [id number] EXAM DATE: ORDERING PHYSICIAN: ANTONIO VEGA TECHNOLOGIST: Location: [facility] Patient: Latoya Auguste : 1940 Visit/Account:[id number] Date of Sevice: 07/16/2018 Exam type: SHOULDER MIN 2 VIEWS RIGHT History: fall Comparison: None. Findings: Three views of the right shoulder are submitted. There is no gross evidence of acute fracture or dis location involving the right shoulder although images are somewhat limited apparently related to amrit ent's pain. There is no evidence of a right AC joint separation. There appear to be degenerative ch anges at the right glenohumeral joint IMPRESSION: 1. Degenerative changes of the right glenohumeral joint although no gross evidence of acute fracture dislocation right shoulder. Images are somewhat limited apparently related to patient's pain Report Dictated By: Ella Hebert MD at 07/16/2018 1:17 PM Report E-Signed By: Ella Hebert MD at 07/16/2018 1:20 PM WSN:[email or web address]
--- NOTE | 2018-07-16 13:27 | RADIOLOGY IMAGING REPORT ---
FACILITY: [facility] PATIENT NAME: Latoya Auguste : 1940 MR: [id number] V: [id number] EXAM DATE: ORDERING PHYSICIAN: ANTONIO VEGA TECHNOLOG[place] [facility] [place] : 1940 Visit/Account:[id number] Date of Sevice: 07/16/2018 Exam type: CHEST SINGLE AP History: Chest Pain, fall Comparison: Debris 2017. Findings: The lungs are free of acute effusions, infiltrates or edema. There is no evidence of a pneumothorax or pneumomediastinum. The cardiac silhouette is normal in size. The trachea is midline. There are degenerative changes at both shoulder joints IMPRESSION: 1. No acute cardiopulmonary process is seen Report Dictated By: Ella Hebert MD at 07/16/2018 1:20 PM Report E-Signed By: Ella Hebert MD at 07/16/2018 1:21 PM WSN:[email or web address]
--- NOTE | 2018-07-16 14:20 | RADIOLOGY IMAGING REPORT ---
FACILITY: [facility] [place] PATIENT NAME: Latoya Auguste : 1940 MR: [id number] V: [id number] EXAM DATE: ORDERING PHYSICIAN: ANTONIO VEGA TECHNOLOGIST: [place] [facility] [place] Latoya Auguste : 1940 Visit/Account:[id number] Date of Sevice: 07/16/2018 EXAMINATION: Brain MRI without IV contrast HISTORY: Altered mental status. Possible stroke. COMPARISON: MRI of the brain from 05/23/2017. CT of the head from the same day. TECHNIQUE: Multi-planar, multi-sequence brain MRI was performed without IV contrast administration. FINDINGS: Images are moderately degraded by motion artifact. Brain and other intracranial structures: Mild generalized cerebral volume loss with corresponding claros lcal and ventricular prominence. Mild burden of small T2 hyperintense foci scattered within the whit e matter, similar to the previous MRI examination. No midline shift, mass, hemorrhage, or acute infarct. Calvarium / scalp: Negative. Skull base: Negative. Visualized sinuses / orbits: Opacification of the maxillary sinuses, several of the ethmoid air cell s, and the right frontal sinus. IMPRESSION: Images are moderately degraded by motion artifact. No evidence of acute intracranial pathology. No evidence of acute infarct. Extensive chronic paranasal sinus mucosal disease, similar to previous examinations. Report Dictated By: Ayaan Miramontes MD at 07/16/2018 2:05 PM Report E-Signed By: Ayaan Miramontes MD at 07/16/2018 2:14 PM WSN:[email or web address]
--- NOTE | 2018-07-16 14:37 | RADIOLOGY IMAGING REPORT ---
FACILITY: [facility] [place] PATIENT NAME: Latoya Auguste : 1940 MR: [id number] V: [id number] EXAM DATE: ORDERING PHYSICIAN: ANTONIO VEGA TECHNOLOGIST: Location: [facility] Patient: Latoya Auguste : 1940 Visit/Account:[id number] Date of Sevice: 07/16/2018 PELVIS HISTORY: fall Additional history: Bilateral hip pain COMPARISON: None. FINDINGS: Pelvic girdle and hips are intact without evidence of fracture. No appreciable hip arthropathy noted . There is multilevel degenerative disc disease lower lumbar spine with disc space narrowing. Rec pablo temperature probe in place IMPRESSION: No evidence of acute trauma. Report Dictated By: Carter Trujillo MD at 07/16/2018 2:29 PM Report E-Signed By: Carter Trujillo MD at 07/16/2018 2:33 PM WSN:[email or web address]
--- NOTE | 2018-07-16 15:33 | EKG ---
FACILITY: PATIENT NAME: RAJEEV CHU : [id number] MR: [id number] V: [id number] EXAM DATE: ORDERING PHYSICIAN: ANTONIO VEGA TECHNOLOGIST: Test Reason : Blood Pressure : / mmHG Vent. Rate : 083 BPM Atrial Rate : 083 BPM P-R Int : 164 ms QRS Dur : 126 ms QT Int : 424 ms P-R-T Axes : 026 -36 067 degrees QTc Int : 498 ms Normal sinus rhythm Left axis deviation Left bundle branch block Abnormal ECG When compared with ECG of 16-JUL-2018 11:34, Sinus rhythm has replaced Atrial fibrillation Vent. rate has decreased BY 56 BPM Left bundle branch block is now present Criteria for Anteroseptal infarct are no longer present Confirmed by WILLIE GARZA ([id number]) on 07/16/2018 5:01:57 PM Referred By: Confirmed By:WILLIE GARZA
[2018-07-16 17:30] VITALS: BP 155/66
== END 2018-07-16 17:56 | disposition short-term general hospital (02) ==
LOC: ER 11:51
DX: I63.9 Cerebral infarction, unspecified (principal); I48.0 Paroxysmal atrial fibrillation
CPT/HCPCS: 70450; 70486; 70551; 71045; 72125; 72170; 73030; 73090; 81001; 82550; 82570; 83605; 83735; 83880; 83930; 83935; 84300; 84484; 85025; 85610; 85730; 87040; 87088; 93005; 96365; 96366; 96368; 96375; 96376; 99285; C1758; J0131; J2270; J3490; J7030; J7050; 82040; 82247; 82310; 82374; 82435; 82565; 82947; 84075; 84132; 84155; 84295; 84450; 84460; 84520

== ENCOUNTER → 2018-07-16 | Outpatient (CLI) | payer MEDICARE ==
[2017-05-08 09:19] VITALS: BMI 25.8
== END ==
LOC: AMB 17:31
DX: I48.2 Chronic atrial fibrillation (principal); R41.82 Altered mental status, unspecified; R53.1 Weakness
CPT/HCPCS: A0425; A0426

== ENCOUNTER → 2018-07-16 | Outpatient (CLI) | payer MEDICARE ==
[2017-05-08 09:19] VITALS: BMI 25.8
== END ==
LOC: AMB 11:01
PROVIDERS: ATTEND Nurse Practitioner
DX: M25.512 Pain in left shoulder (principal); M25.511 Pain in right shoulder; R40.4 Transient alteration of awareness; R06.00 Dyspnea, unspecified; R42 Dizziness and giddiness; R53.83 Other fatigue; R29.810 Facial weakness
CPT/HCPCS: A0425; A0427

== ENCOUNTER → 2018-07-29 | Outpatient (CLI) | payer MEDICARE ==
[2017-05-08 09:19] VITALS: BMI 25.8
[~2018-07-29] MED LIST changes: +APIX5TAB PO; +ASPI-757 PO; +ATOR20TA65 PO; +DILT30TA35 PO; +DILT60TA33 PO
--- NOTE | 2018-07-30 21:58 | RT HOLTER TEST ---
FACILITY: [facility] [place] PATIENT NAME: RAJEEV CHU : [id number] MR: [id number] V: [id number] EXAM DATE: ORDERING PHYSICIAN: TASNEEM LOWRY TECHNOLOGIST: GUNNAR Hook-up date: 2018-07-29 15:06:00 Duration: 23:48:00 Test Indications: a-fib Medications: cardizem [id number] QRS complexes 1 Ventricular ectopics which represent <1 % of total QRS comp. 440 Supraventricular ectopics which represent <1 % of total QRS comp. * Paced QRS complexes which represent % of total QRS comp. VENTRICULAR ECTOPY 1 Isolated 0 Bigeminal Cycles 0 Couplets 0 Runs 0 Beats in Runs * Beats LONGEST at * BPM at :: -- * Beats FASTEST at * BPM at :: -- SUPRAVENTRICULAR ECTOPY 417 Isolated 7 Couplets 3 Runs 9 Beats in Runs 3 Beats LONGEST at 148 BPM at 19:15:59 2018-07-29 3 Beats FASTEST at 148 BPM at 19:15:59 2018-07-29 HEART RATES 56 MIN at 10:22:05 2018-07-30 77 AVG 127 MAX at 19:20:16 2018-07-29 LONGEST RR 1.296 secs at 06:18:45 2018-07-30 Channel 3 -12.800 mm MIN at 15:06:00 2018-07-29 -12.800 mm MAX at 15:06:00 2018-07-29 Study predominantly NSR but does have periods of atrial fibrillation. Patient events appear to correspond to NSR. Infrequent PVC's Positive holter study. Confirmed by Yemi Gutiérrez ([id number]) on 07/30/2018 9:58:03 PM Referred By: Overread By: Yemi Stephens
== END ==
LOC: RESP 14:42
PROVIDERS: ATTEND Emergency Medicine
DX: I48.0 Paroxysmal atrial fibrillation (principal)
CPT/HCPCS: 93225; 93226